=== PATIENT | female | born 1995 | race Caucasian/White ===

== ENCOUNTER 2016-02-20 16:14 | Inpatient (IN) | payer OTHER, BC ==
[~2016-02-20] VITALS: Ht 182.9 cm; Wt 76.6 kg
[2016-02-20] VITALS (9 sets, daily range): BP systolic 104–122; BP diastolic 56–97
--- NOTE | 2016-02-20 16:27 | ED Dyspnea ---
General Stated Complaint: BLOOD CLOTS Source of Information: Patient Exam Limitations: No Limitations History of Present Illness Time Seen by Provider: 16:24 Initial Comments To ER with reports of an elevated d-dimer. She was seen here on 02/17/16 after syncopal event during basket ball practice. 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 Evaluation at that time included an echocardiogram which showed Mild RV dilatation with mild RV dysfunction noted. Pulmonary hypertension is noted with RVSP of 45 mmHg. however, d-dimer was not done. Today as an outpatient Dr. Sanchez ordered d-dimer which was found to be greater than 6. She does report persistent dyspnea with exertion but no recurrent syncopal or near syncopal events. She denies any lower extremity swelling or palpitations or chest pain. She is a nonsmoker. She is on control pills. No family history that she is aware of of clotting disorder. Timing/Duration: 1 Week Severity: Moderate Modifying Factors: Worse With Activity Allergies and Home Medications Allergies Coded Allergies: No Known Drug Allergies (Unverified , 02/17/16) Home Medications (Reported) Constitutional: see HPI EENTM: see HPI Respiratory: see HPINo cough, dyspnea on exertionNo hemoptysis, short of breath Cardiovascular: No chest pain, No edema, No Hx of Intervention, No palpitations , syncope (evaluated in the emergency room on 02/17/16 for this) Genitourinary: no symptoms reported Musculoskeletal: no symptoms reported Skin: no symptoms reported Psychiatric/Neurological: No Symptoms Reported Past Dszxdkf-Rxcvnv-Juniae Hx Patient Social History Recent Foreign Travel: No Contact w/Someone Who Travel: No Recent Hopitalizations: No Seasonal Allergies Seasonal Allergies: No Surgeries HX Surgeries: Yes Surgeries: Orthopedic Physical Exam Vital Signs Vital Sign - Last 12Hours 02/20/16 16:14 Temp 96.7 Pulse 90 Resp 18 B/P 127/87 Pulse Ox 96 O2 Delivery Room Air Capillary Refill : General Appearance: No Apparent Distress WD/WN Other (she is well-appearing upon arrival. No respiratory distress. Blood pressure is 127/87. Heart rate is 94. Oxygen saturation is also 94 percent on room air. Respiratory rate is 18.) HEENT: PERRL/EOMI TMs Normal Neck: Full Range of Motion Normal Inspection Respiratory: Chest Non Tender Lungs Clear Normal Breath Sounds No Accessory Muscle Use No Respiratory Distress Cardiovascular: Regular Rate, Rhythm Normal Peripheral Pulses Gastrointestinal: No Pulsatile Mass Non Tender Soft Extremity: Normal Capillary Refill Normal Inspection No Pedal Edema Neurologic/Psychiatric: Alert Oriented x3 No Motor/Sensory Deficits Skin: Normal Color Warm/Dry Progress/Results/Core Measures Results/Orders Lab Results Laboratory Tests Test 02/20/16 16:20 Range/Units Alanine Aminotransferase (ALT/SGPT) 20 0-55 U/L Albumin 4.2 3.2-4.5 G/DL Alkaline Phosphatase 75 40-136 U/L Anion Gap 10 5-14 MMOL/L Aspartate Amino Transf (AST/SGOT) 17 5-34 U/L BUN/Creatinine Ratio 16 Basophils # (Auto) 0.0 0.0-0.1 10^3/uL Basophils (%) (Auto) 0 0-10 % Blood Urea Nitrogen 14 7-18 MG/DL Calcium Level 9.3 8.5-10.1 MG/DL Carbon Dioxide Level 24 21-32 MMOL/L Chloride Level 104 98-107 MMOL/L Creatinine 0.88 0.60-1.30 MG/DL Eosinophils # (Auto) 0.3 0.0-0.3 10^3/uL Eosinophils (%) (Auto) 4 0-10 % Estimat Glomerular Filtration Rate > 60 Glucose Level 81 70-105 MG/DL Hematocrit 39 35-52 % Hemoglobin 13.4 11.5-16.0 G/DL Lymphocytes # (Auto) 1.7 1.0-4.0 X 10^3 Lymphocytes (%) (Auto) 22 12-44 % Mean Corpuscular Hemoglobin 31 25-34 PG Mean Corpuscular Hemoglobin Concent 35 32-36 G/DL Mean Corpuscular Volume 90 80-99 FL Mean Platelet Volume 10.3 7.4-10.4 FL Monocytes # (Auto) 0.5 0.0-1.0 X 10^3 Monocytes (%) (Auto) 6 0-12 % Neutrophils # (Auto) 5.2 1.8-7.8 X 10^3 Neutrophils (%) (Auto) 68 42-75 % Platelet Count 153 130-400 10^3/uL Potassium Level 3.8 3.6-5.0 MMOL/L Red Blood Count 4.31 L 4.35-5.85 10^6/uL Red Cell Distribution Width 12.9 10.0-14.5 % Sodium Level 138 135-145 MMOL/L Total Bilirubin 0.4 0.1-1.0 MG/DL Total Protein 7.3 6.4-8.2 G/DL White Blood Count 7.7 4.3-11.0 10^3/uL My Orders Orders-RIKA PARDO VIDEO JOURNALIST Ct Angio Chest W (02/20/16 16:16) Cbc With Automated Diff (02/20/16 16:16) Comprehensive Metabolic Panel (02/20/16 16:16) Urine Bedside (02/20/16 16:16) Iohexol Injection (Omnipaque 350 Mg/Ml 1 (02/20/16 16:45) Ns (Ivpb) (Sodium Chloride 0.9% Ivpb Bag (02/20/16 16:45) Ekg Tracing (02/20/16 16:43) Continuous Ekg Monitoring (02/20/16 16:43) Us Venous Lower Ext Lisette (02/20/16 17:21) Heparin Drip 89491 Unit/500ml (Heparin (02/20/16 17:24) Heparin (Bolus Per Protocol) (Heparin (B (02/20/16 17:30) Medications Given in ED Current Medications Medications Dose Ordered Sig/Kim Route Start Time Stop Time Status Last Admin Dose Admin Heparin Sodium (Porcine) HEPARIN FULL PROTOC... ONCE ONCE IV 02/20/16 17:30 02/20/16 17:31 DC 02/20/16 17:44 10,000 UNIT Heparin Sodium/ Dextrose 500 ml @ 0 mls/hr Q0M ONCE IV 02/20/16 17:24 02/20/16 17:26 DC 02/20/16 17:45 24 MLS/HR Iohexol 150 ml ONCE ONCE IV 02/20/16 16:45 02/20/16 16:46 DC 02/20/16 17:06 125 ML Sodium Chloride 100 ml 100 ml ONCE ONCE IV 02/20/16 16:45 02/20/16 16:46 DC 02/20/16 17:06 80 ML Vital Signs/I&O Vital Sign - Last 12Hours 02/20/16 16:14 Temp 96.7 Pulse 90 Resp 18 B/P 127/87 Pulse Ox 96 O2 Delivery Room Air Diagnostic Imaging Diagonstic Imaging: CT Comments NAME: KWABENA DAVIS [facility] REC#: [id number] PT STATUS: REG ER : 1995 PHYSICIAN: RIKA PARDO APRN ADMIT DATE: 02/20/16/ER Draft Date of Exam:02/20/16 CT ANGIO CHEST W PROCEDURE: CT angiography of the chest with contrast. TECHNIQUE: Multiple contiguous axial images were obtained through the chest after uneventful bolus administration of intravenous contrast. Reconstructed CTA MIP acquisitions were also performed. INDICATION: Shortness of breath. Patient passed out during basketball practice two days ago. COMPARISON: None available. FINDINGS: There is a large burden of bilateral pulmonary thromboembolic disease. On the right, emboli are present within all of the lobar arteries of the right upper and lower lobe. There is also thrombus involving a majority of the lobar and interlobar vessels in the left lung. No evidence of pulmonary hypertension or right ventricular strain. Heart is upper limits of normal in size. Thoracic aorta is normal in caliber without evidence of dissection. No pericardial effusion. No pleural effusion or pneumothorax. There are patchy opacities in the lateral basilar segment of the right lower lobe which may represent early foci of infarct or atelectasis. There is an 8 mm nodule in the left lower lobe adjacent to the diaphragm. No additional consolidation, mass or nodule. Benign hemangioma within the T4 vertebral body. No concerning osseous lesions. Visualized portions of the upper abdomen are unremarkable. IMPRESSION: 1. Large burden of bilateral pulmonary emboli. No evidence of pulmonary hypertension by CT. 2. Patchy consolidation in the posterior right lower lobe may represent developing pulmonary infarct. This could also represent atelectasis. 3. Left lower lobe 8 mm pulmonary nodule could represent an additional foci of early infarct. This could also be infectious or inflammatory in etiology. Followup CT chest in three months after appropriate medical management is advised to ensure resolution. The findings of acute pulmonary emboli were communicated by Dr. Juan J Benton to Rika Pardo in the emergency department at 5:30 p.m. on 02/20/2016. Dictated on workstation # [id number] Dict: 02/20/16 1725 Trans: 02/20/16 1738 [facility] [id number] Interpreted by: JUAN J BENTON MD Electronically signed by: NAME: KWABENA DAVIS [facility] REC#: [id number] PT STATUS: ADM IN : 1995 PHYSICIAN: RIKA PARDO APRN ADMIT DATE: 02/20/16/ICU Draft Date of Exam:02/20/16 US VENOUS LOWER EXT LISETTE Technique: Grayscale, pulsed and color Doppler imaging of the bilateral lower extremity. Indication: Bilateral pulmonary emboli. Findings: The bilateral common femoral, femoral and popliteal veins are patent without evidence of DVT. Visualized aspects of the bilateral deep femoral, peroneal and posterior tibial veins are also patent. All of the evaluated deep venous structures demonstrate normal compressibility and augmentation where applicable. Impression: No deep venous thrombosis in either lower extremity. Dictated on workstation # [id number] Dict: 02/20/161851 Trans: 02/20/161853 [facility] [id number] Interpreted by: JUAN J BENTON MD Electronically signed by: Departure Communication Time/Spoke to Admitting Phy: 17:43 Communication Discussed the case with Dr. Pérez. We will admit the patient to ICU with a consult to Dr. Grier and Dr. Layne Time/Spoke to Consulting Physi: 17:43 Communication/Consulting Discussed with Dr. Layne who agrees with full heparin protocol. Family Conversation Dr Grier was notified via Olivia HORAN of consult as he was in a procedure at this time Impression Impression: Primary Impression: Bilateral pulmonary embolism Disposition: ADMITTED INPATIENT Condition: Stable Decision to Admit Reason: Admit from ER (General) Decision to Admit/Date: Feb 20, 2016 Time/Decision to Admit Time: 17:28 Departure-Patient Inst. Referrals: [facility] (PCP/Family) Primary Care Physician Copy Copies To 1: JULIANA SANCHEZ MD, PETER J APRN Feb 20, 2016 16:27
[2016-02-20 16:29] LABS: BASOPHILS % (AUTO) 0 % (0-10); EOSINOPHILS # (AUTO) 0.3 10^3/uL (0.0-0.3); EOSINOPHILS % (AUTO) 4 % (0-10); LYMPHOCYTES # (AUTO) 1.7 X 10^3 (1.0-4.0); LYMPHOCYTES % (AUTO) 22 % (12-44); MEAN CORPUSCULAR HEMOGLOBIN 31 PG (25-34); MEAN CORPUSCULAR HGB CONC 35 G/DL (32-36); MEAN CORPUSCULAR VOLUME 90 FL (80-99); MEAN PLATELET VOLUME 10.3 FL (7.4-10.4); MONOCYTES # (AUTO) 0.5 X 10^3 (0.0-1.0); MONOCYTES % (AUTO) 6 % (0-12); NEUTROPHILS # (AUTO) 5.2 X 10^3 (1.8-7.8); NEUTROPHILS % (AUTO) 68 % (42-75); PLATELET COUNT 153 10^3/uL (130-400); RED BLOOD COUNT 4.31 10^6/uL (4.35-5.85); RED CELL DISTRIBUTION WIDTH 12.9 % (10.0-14.5); WHITE BLOOD COUNT 7.7 10^3/uL (4.3-11.0)
[2016-02-20] MEDS ORDERED: BCP (16:33)
[2016-02-20] MEDS ORDERED: NS 100 ML (IVPB) BAG IV ONE (16:45)
[2016-02-20] MEDS ORDERED: IOHEXOL 350 MG/ML 150 ML (OMNIPAQUE 350) VIAL IV ONE (16:45)
[2016-02-20 16:47] LABS: ALANINE AMINOTRANSFERASE 20 U/L (0-55); ALBUMIN 4.2 G/DL (3.2-4.5); ANION GAP 10 MMOL/L (5-14); ASPARTATE AMINO TRANSFERASE 17 U/L (5-34); BILIRUBIN,TOTAL 0.4 MG/DL (0.1-1.0); BLOOD UREA NITROGEN 14 MG/DL (7-18); BUN/CREATININE RATIO 16; CALCIUM 9.3 MG/DL (8.5-10.1); CARBON DIOXIDE 24 MMOL/L (21-32); CHLORIDE 104 MMOL/L (98-107); CREATININE SERUM 0.88 MG/DL (0.60-1.30); GFR ESTIMATED > 60; GLUCOSE 81 MG/DL (70-105); POTASSIUM 3.8 MMOL/L (3.6-5.0); SODIUM 138 MMOL/L (135-145); TOTAL PROTEIN 7.3 G/DL (6.4-8.2)
[2016-02-20] MEDS ORDERED: HEParin DRIP 25000 UNIT/500ML 500 ML IV ONE (17:24)
[2016-02-20] MEDS ORDERED: HEParin 1000 UNIT/ML (10ML VIAL) FOR BOLUS IV ONE (17:30)
--- NOTE | 2016-02-20 17:38 | Diagnostic Imaging Report ---
PROCEDURE: CT angiography of the chest with contrast. TECHNIQUE: Multiple contiguous axial images were obtained through the chest after uneventful bolus administration of intravenous contrast. Reconstructed CTA MIP acquisitions were also performed. INDICATION: Shortness of breath. Patient passed out during basketball practice two days ago. COMPARISON: None available. FINDINGS: There is a large burden of bilateral pulmonary thromboembolic disease. On the right, emboli are present within all of the lobar arteries of the right upper and lower lobe. There is also thrombus involving a majority of the lobar and interlobar vessels in the left lung. No evidence of pulmonary hypertension or right ventricular strain. Heart is upper limits of normal in size. Thoracic aorta is normal in caliber without evidence of dissection. No pericardial effusion. No pleural effusion or pneumothorax. There are patchy opacities in the lateral basilar segment of the right lower lobe which may represent early foci of infarct or atelectasis. There is an 8 mm nodule in the left lower lobe adjacent to the diaphragm. No additional consolidation, mass or nodule. Benign hemangioma within the T4 vertebral body. No concerning osseous lesions. Visualized portions of the upper abdomen are unremarkable. IMPRESSION: 1. Large burden of bilateral pulmonary emboli. No evidence of pulmonary hypertension by CT. 2. Patchy consolidation in the posterior right lower lobe may represent developing pulmonary infarct. This could also represent atelectasis. 3. Left lower lobe 8 mm pulmonary nodule could represent an additional foci of early infarct. This could also be infectious or inflammatory in etiology. Followup CT chest in three months after appropriate medical management is advised to ensure resolution. The findings of acute pulmonary emboli were communicated by Dr. Juan J Benton to Rafa Pardo in the emergency department at 5:30 p.m. on 02/20/2016. Dictated by: Dictated on workstation # [id number]
--- NOTE | 2016-02-20 18:55 | Diagnostic Imaging Report ---
Technique: Grayscale, pulsed and color Doppler imaging of the bilateral lower extremity. Indication: Bilateral pulmonary emboli. Findings: The bilateral common femoral, femoral and popliteal veins are patent without evidence of DVT. Visualized aspects of the bilateral deep femoral, peroneal and posterior tibial veins are also patent. All of the evaluated deep venous structures demonstrate normal compressibility and augmentation where applicable. Impression: No deep venous thrombosis in either lower extremity. Dictated by: Dictated on workstation # [id number]
[2016-02-20 19:46] LABS: INR 0.9 (0.8-1.4); PROTHROMBIN TIME PATIENT 12.2 SEC (12.2-14.7)
[2016-02-20] MEDS ORDERED: FLU TRIvalent (5 YOA+) 2016-17 (AFLURIA) 0.5 ML IM ONE (20:30)
[2016-02-20] MEDS ORDERED: HEParin 1000 UNIT/ML BOLUS (FULL THERAPY) IV PRN (20:30)
[2016-02-21] VITALS: BP 92/66
[2016-02-21] MEDS ORDERED: NS IV 1000 ML 1,000 ML ONE (01:42)
[2016-02-21] MEDS ORDERED: NS IV 1000 ML 1,000 ML IV SCH (03:30)
[2016-02-21 04:00] VITALS: BP 108/70
--- NOTE | 2016-02-21 08:15 | Pulmonary Consultation ---
History of Present Illness History of Present Illness Date of Consultation 02/21/16 08:11 Date of Admission History of Present Illness 20yo presented to ED secondary to worsening SOB and syncope. CT scan showed large saddle pulmonary emboli. She was admitted to ICU and placed on heparin gtt. She has been on control pills x 4mo. she was also on a recent trip to [place]. 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. I am consulted for pulmonary management. Allergies and Home Medications Allergies Coded Allergies: No Known Drug Allergies (Unverified , 02/17/16) Home Medications Rivaroxaban 15 Mg Tablet 21Days 15 MG PO BID@, Prescribed by: BERNADETTE PERDOMO on 02/23/16 1038 Rivaroxaban 20 Mg Tablet #30 20 MG PO DAILY Prescribed by: BERNADETTE PERDOMO on 02/23/16 1038 Past Cbpymvq-Qdxvbk-Idudme Hx Patient Social History Alcohol Use: Occasionally Uses Recreational Drug Use: No Smoking Status: Never a Smoker Recent Foreign Travel: No Contact w/Someone Who Travel: No Recent Infectious Disease Expo: No Recent Hopitalizations: No Physical Abuse Screen: No Sexual Abuse: No Seasonal Allergies Seasonal Allergies: No Surgeries HX Surgeries: Yes (ACL RECONSTRUCTION) Surgeries: Orthopedic Respiratory Hx Respiratory Disorders: No Cardiovascular Hx Cardiac Disorders: No Neurological Hx Neurological Disorders: No Reproductive System Hx Reproductive Disorders: No Genitourinary Hx Genitourinary Disorders: No Gastrointestinal Hx Gastrointestinal Disorders: No Musculoskeletal Hx Musculoskeletal Disorders: No Endocrine Hx Endocrine Disorders: No HEENT HX ENT Disorders: No Cancer Hx Cancer: No Psychosocial Hx Psychiatric Problems: No Integumentary HX Skin/Integumentary Disorder: No Blood Transfusions Hx Blood Disorders: No Adverse Reaction to a Blood Tr: No Family Medical History Family Medial History: Patient reports no known family medical history. Review of Systems Constitutional: : Malaise: WeaknessNo: Chills, Fever, Other, Sweats ENT: : Nose congestion Respiratory: : Cough: SOB with excertion: Shortness of breath Cardiovascular: : Lt Headedness: PalpitationsNo: Chest Pain, Edema, Orthopnea, Other Gastrointestinal: No: Abdominal Pain, Constipation, Diarrhea, Hematochezia, Melena, Nausea, Other, Vomiting Genitourinary: No Dysuria, No Frequency, No Incontinence, No Hematuria, No Retention, No Other Musculoskeletal: No: arm pain, back pain, foot pain, hand pain, leg pain, neck pain, other, shoulder pain Skin: No: Bruising, Jaundice, Lesions, Other, Rash Neurological: : Weakness Exam Exam Vital Signs Date Time Temp Pulse Resp B/P Pulse Ox O2 Delivery O2 Flow Rate FiO2 02/21/16 06:30 100 Nasal Cannula 2.00 02/21/16 04:00 97.8 64 16 108/70 100 Nasal Cannula 2.00 02/21/16 04:00 100 Nasal Cannula 2.00 02/21/16 01:58 99 Nasal Cannula 2.00 02/21/16 01:09 100 Nasal Cannula 2.00 02/21/16 01:00 61 02/21/16 00:00 99 Nasal Cannula 2.00 02/21/16 00:00 56 18 92/66 100 Room Air 02/21/16 00:00 97.6 02/20/16 23:37 Nasal Cannula 2.00 02/20/16 23:00 46 14 107/64 100 Room Air 02/20/16 22:00 66 20 104/75 97 Room Air 02/20/16 21:30 68 19 105/62 99 Room Air 02/20/16 21:00 74 10 121/97 100 Room Air 02/20/16 20:30 71 16 112/92 98 Room Air 02/20/16 20:20 58 02/20/16 20:00 61 10 110/65 99 Room Air 02/20/16 19:45 58 13 122/86 100 Room Air 02/20/16 19:30 67 17 115/56 97 Room Air 02/20/16 19:25 58 13 114/83 100 Room Air 02/20/16 19:25 98.1 02/20/16 19:20 99 Nasal Cannula 2.00 02/20/16 18:13 71 18 100 Room Air 02/20/16 16:14 96.7 90 18 127/87 96 Room Air I & O 02/21/16 07:00 Intake Total 800 ml Output Total 400 ml Balance 400 ml General Appearance: No Apparent Distress WD/WN Other (she is well-appearing upon arrival. No respiratory distress. Blood pressure is 127/87. Heart rate is 94. Oxygen saturation is also 94 percent on room air. Respiratory rate is 18.) HEENT: PERRL/EOMI TMs Normal Neck: Full Range of Motion Normal Inspection Respiratory: Chest Non Tender Lungs Clear Normal Breath Sounds No Accessory Muscle Use No Respiratory Distress Cardiovascular: Regular Rate, Rhythm Normal Peripheral Pulses Capillary Refill: Less Than 3 Seconds Extremity: Normal Capillary Refill Normal Inspection No Pedal Edema Neurologic/Psychiatric: Alert Oriented x3 No Motor/Sensory Deficits Skin: Normal Color Warm/Dry Results Lab Laboratory Tests 02/20/16 16:20 Assessment/Plan Assessment/Plan -Acute PE secondary to control -Hep gtt PE protocol -- Will convert to Xarelto prior to discharge. Will continue to monitor until Tuesday -D/C control Clinical Quality Measures DVT/VTE Risk/Contraindication: Risk Factor Score Per Nursin RFS Level Per Nursing on Admit: 4+=Very High BA WEISS DO Feb 21, 2016 08:15
[2016-02-21 08:45] VITALS: BP 105/67
[2016-02-21 11:35] VITALS: BP 107/68
--- NOTE | 2016-02-21 11:53 | History & Physical-Hospitalist ---
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 She was found to have elevated d-dimer of [address] angiogram that was obtained showing large clot burden of saddle pulmonary emboli. She was placed on heparin per protocol and Dr. Grier and Dr. Layne have been consulted due to abnormal echocardiogram showing left ventricular strain and pulmonary hypertension respectively. She reports that she was just started on control pills 4 months ago to regulate her periods of which she has been taking continuously without one week for menstrual bleed since that time. [place] also [place] when she was participating in a basketball game. She reports that she experienced an episode of fainting on 02/17/16 at basketball practice and presented to the emergency room was found to have echocardiogram completed and had become more short of breath as time went on. Currently her family is at the bedside and she is very withdrawn due to the fact that she was unable to dissipate in the basketball game today and with the most important games of the season but she will watch the game by television. I did order a factor V Leiden clotting disorder lab test in case the acute clot would not skew the results but I updated the family on that fact that could be a possibility but factor V Leiden being the most common cause of hyper correctable state of addition to the hormone that she was on they agreed that was an opportunity while she was hospitalized to obtain. 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) Alcohol Use: Occasionally Uses Recreational Drug Use: No Smoking Status: Never a Smoker Physical Abuse Screen: No Sexual Abuse: No Recent Foreign Travel: No Contact w/other who traveled: No Recent Hopitalizations: No Recent Infectious Disease Expo: No Seasonal Allergies Seasonal Allergies: No Surgeries HX Surgeries: Yes (ACL RECONSTRUCTION) Surgeries: Orthopedic Respiratory Hx Respiratory Disorders: No Cardiovascular Hx Cardiovascular Disorders: No Neurological Hx Neurological Disorders: No Reproductive System Hx Reproductive Disorders: No Genitourinary Hx Genitourinary Disorders: No Gastrointestinal Hx Gastrointestinal Disorders: No Musculoskeletal Hx Musculoskeletal Disorders: No Endocrine Hx Endocrine Disorders: No HEENT HX ENT Disorders: No Cancer Hx Cancer: No Psychosocial Hx Psychiatric Problems: No Integumentary HX Skin/Integumentary Disorder: No Blood Transfusions Hx Blood Disorders: No Adverse Reaction to a Blood Tr: No Family Medical History Family Hx: Patient reports no known family medical history. Review of Systems Constitutional: dizziness weakness EENTM: no symptoms reported Respiratory: dyspnea on exertion orthopnea short of breath Cardiovascular: chest pain Gastrointestinal: no symptoms reported Genitourinary: no symptoms reported Control/STD Prophylaxis: BC Pills Musculoskeletal: no symptoms reported Skin: no symptoms reported Psychiatric/Neurological: No Symptoms Reported All Other Systems Reviewed Negative Unless Noted: Yes Physical Exam Physical Exam Vital Signs Vital Sign - Last 12Hours 02/20/16 02/20/16 16:14 19:20 Temp 96.7 Pulse 90 Resp 18 B/P 127/87 Pulse Ox 96 O2 Delivery Room Air O2 Flow Rate 2.00 Capillary Refill : Less Than 3 Seconds General Appearance: No Apparent Distress WD/WN Eyes: Bilateral Eye Normal Inspection, Bilateral Eye PERRL HEENT: PERRL/EOMI Normal ENT Inspection Pharynx Normal Neck: Full Range of Motion Normal Inspection Non Tender Supple Carotid Bruit Respiratory: Chest Non Tender Lungs Clear No Accessory Muscle Use No Respiratory Distress Decreased Breath Sounds (in the bases only subtle finding) Cardiovascular: Regular Rate, Rhythm No Edema No Gallop No JVD No Murmur Normal Peripheral Pulses Gastrointestinal: Normal Bowel Sounds No Organomegaly No Pulsatile Mass Non Tender Soft Back: Normal Inspection No CVA Tenderness No Vertebral Tenderness Extremity: Normal Capillary Refill Normal Inspection Normal Range of Motion Non Tender No Calf Tenderness No Pedal Edema Neurologic/Psychiatric: Alert Oriented x3 No Motor/Sensory Deficits Normal Mood/Affect Skin: Normal Color Warm/Dry Lymphatic: No Adenopathy Results Results/Procedures Lab Laboratory Tests 02/20/16 16:20 Assessment/Plan Admission Diagnosis Acute bilateral pulmonary emboli saddle-type with large clot burden with necessity of heparin infusion until transitioning to Xarelto tomorrow Pulmonary hypertension on echocardiogram of 45 with LV strain consulting cardiology History of control pill use started 4 months ago and never been on control pills before and had been taking them continuously without menstrual bleed to regulate her cycles Maternal aunt with blood clots due to ovarian cancer and undergoing chemotherapy at that time Syncopal episode prompting echocardiogram on 02/17/16 Assessment and Plan I appreciate Dr. Grier and Dr. Layne's consultation assistance Heparin protocol Xarelto tomorrow Monitor labs Factor V Leiden drawn Clinical Quality Measures DVT/VTE Risk/Contraindication: Risk Factor Score Per Nursin RFS Level Per Nursing on Admit: 4+=Very High YESSENIA PÉREZ DO Feb 21, 2016 11:53
[2016-02-21] MEDS: HEParin DRIP 25000 UNIT/500ML (FULL THERAPY) IV SCH (12:41)
--- NOTE | 2016-02-21 15:59 | Consultation-Cardiology ---
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 She was seen in the ER, however , there was no cardiology consultation. An echocardiogram was done during the ER visit which I reviewed. The echocardiogram showed mild pulmonary hypertension and mild RV dysfunction. based on the echocardiogram I recommended no further exertion and early follow-up with pulmonary and cardiology. The patient returned to the [employer] clinic with complaints of shortness of breath. Dr. Sanchez performed a d-dimer which was significantly positive and the patient was sent to the ER. Chest CT angiography showed bilateral pulmonary embolism. She denies significant shortness of breath. She also denies family history of clotting abnormalities. Review of Systems-Cardiology Review of Systems Constitutional: No As described under HPI, No no symptoms reported, No chills, No fever, No lightheadedness, No malaise, No tiredness, No weight loss, No weight gain, No other Eyes: No As described under HPI, No no symptoms reported, No blindness, No blurred vision, No contact lenses, No drainage, No decreased acuity, No foreign body sensation, No glasses, No inflammation, No pain, No photophobia, No previous injury, No shadows, No tunnel vision, No other, No vision change Ears/Nose/Throat: No As described under HPI, No no symptoms reported, No chronic hearing loss, No epistaxis, No ear discharge, No ear pain, No loose teeth, No mouth pain, No mouth swelling, No nasal drainage, No nose pain, No recent hearing loss, No throat pain, No throat swelling, No ulcerations, No other Respiratory: shortness of breath Cardiovascular: other (near syncope) Gastrointestinal: No no symptoms reported, No As described under HPI, No abdomen distended, No abdominal pain, No blood streaked bowels, No constipation , No diarrhea, No difficulty swallowing, No nausea, No poor appetite, No poor fluid intake, No rectal bleeding, No vomiting, No other, No nausea/vomiting/ diarrhea, No stool coloration changes Genitourinary: No no symptoms reported, No As described under HPI, No burning, No dysuria, No discharge, No frequency, No flank pain, No hematuria, No incontinence, No pain, No urgency, No other, No urine frequency changes, No urine coloration changes Musculoskeletal: No no symptoms reported, No As describe under HPI, No back pain, No gout, No joint pain, No joint swelling, No muscle pain, No muscle stiffness, No neck pain, No other Skin: No no symptoms reported, No As described under HPI, No change in color, No change in hair/nails, No dryness, No lesions, No lumps, No rash, No other, No skin related problems, No ulcerations, No rash on exposed areas, No ulcerations on exposed areas Psychiatric/Neurological: No As described under HPI, No anxiety, No depression , No emotional problems, No focal weakness, No headache, No no symptoms reported , No numbness, No other, No pre-existing deficit, No seizure, No syncope, No tingling, No tremors, No weakness All Other Systems Reviewed Negative Unless Noted: Yes GTD-Nrpqdu-Vbites Hx Patient Social History Marrital Status: single 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 Family Medical History Family History: Patient reports no known family medical history. Allergies and Home Medications Allergies Coded Allergies: No Known Drug Allergies (Unverified , 02/17/16) Home Medications (Reported) Physical Exam-Cardiology Physical Exam Vital Signs/I&O Vital Sign - Last 12Hours 02/21/16 02/21/16 02/21/16 02/21/16 04:00 04:00 06:30 06:59 Temp 97.8 Pulse 64 38 Resp 16 B/P 108/70 Pulse Ox 100 100 100 O2 Delivery Nasal Cannula Nasal Cannula Nasal Cannula O2 Flow Rate 2.00 2.00 2.00 02/21/16 02/21/16 02/21/16 02/21/16 08:45 08:45 09:45 11:35 Temp 98.2 98.9 Pulse 68 69 Resp 14 16 B/P 105/67 107/68 Pulse Ox 97 95 97 97 O2 Delivery Room Air Room Air Room Air Room Air 02/21/16 02/21/16 02/21/16 12:00 12:51 14:56 Pulse 74 Pulse Ox 97 99 O2 Delivery Room Air Room Air Intake and Output 02/21/16 00:00 Intake Total 200 ml Balance 200 ml Capillary Refill : Less Than 3 Seconds Constitutional: No appears stated age, No AAO x 3, No apparent distress, No PERRL, No well-developed, No well-nourished, No other HEENT: No PERRL, No normal ENT inspection, No TMs normal, No pharynx normal, No scleral icterus (R), No scleral icterus (L), No pale conjunctivae (R), No pale conjunctivae (L), No photophobia, No TM abnormal (R), No TM abnormal (L), No pharyngeal erythema, No tonsillar exudate, No other, No discharge, No EOMI, No hearing is well preserved, No hard of hearing, No oral hygience is good, No ulceration, No xanthelasmas are seen Neck: No non-tender, No full range of motion, No supple, No normal inspection, No carotid bruit, No limited range of motion, No lymphadenopathy (R), No lymphadenopathy (L), No tender lateral, No tender midline, No thyromegaly, No other, No carotid pulses are 2 + bilaterally, No with good upstrokes Respiratory: No accessory muscle use, No respiratory distress, No chest tender , No chest expansion is symmetric, No chest is bilaterally symmetric, No lungs clear to percussion, No lungs clear to auscultation, No crackles, No rhonchi, No rales, No stridor, No wheezing, No pleural rub, No other Cardiovascular: No regular rate-rhythm, No irregularly irregular, No extra beats, No parasternal heave is noted, No JVD, No edema, No bradycardia, No tachycardia, No point of maximal impulse, No cardiac thrills are palpable, No S1 and S2, No gallop/S3, No gallop/S4, No diastolic murmur, No systolic murmur, No friction rub, No click, No other Gastrointestinal: No tender, No soft, No round, No distended, No pulsatile mass , No organomegaly, No guarding, No rebound, No tenderness, No hernia, No mass, No audible bowel sounds, No abnormal bowel sounds, No abdominal bruits, No spleenomegaly, No other Rectal: deferred Extremities: No normal range of motion, No non-tender, No normal inspection, No pedal edema, No calf tenderness, No normal capillary refill, No pelvis stable , No calf tenderness, No inflammation, No pedal edema, No slow capillary refill , No swelling, No other, No abrasion, No clubbing, No cyanosis, No ecchymosis, No laceration, No no lower extremity edema bilateral, No significant edema, No tenderness, No wound Neurologic/Psychiatric: No photographic specialist II-XII nml as tested, No no motor/sensory deficits, No alert, No normal mood/affect, No oriented x 3, No abnormal cerebellar tests, No abnormal photographic specialist II-XII, No abnormal gait, No aphasia, No EOM palsy, No facial droop, No motor weakness, No sensory deficit, No depressed affect, No disoriented x 3, No other, No grossly intact, No power is 5/5 both on sides Skin: No normal color, No warm/dry, No cyanosis, No cool, No diaphoresis, No damp, No ecchymosis, No jaundice, No mottled, No pallor, No rash, No tattoos/ piercings, No ulcerations, No rash on exposed areas, No ulcerations on exposed areas, No other Data Review Labs Laboratory Tests 02/20/16 16:20: Activated Partial Thromboplast Time 26, Alanine Aminotransferase (ALT/SGPT) 20, Albumin 4.2, Alkaline Phosphatase 75, Anion Gap 10, Aspartate Amino Transf (AST/ SGOT) 17, BUN/Creatinine Ratio 16, Basophils # (Auto) 0.0, Basophils (%) (Auto) 0, Blood Urea Nitrogen 14, Calcium Level 9.3, Carbon Dioxide Level 24, Chloride Level 104, Creatinine 0.88, Eosinophils # (Auto) 0.3, Eosinophils (%) (Auto) 4, Estimat Glomerular Filtration Rate > 60, Glucose Level 81, Hematocrit 39, Hemoglobin 13.4, INR Comment 0.9, Lymphocytes # (Auto) 1.7, Lymphocytes (%) ( Auto) 22, Mean Corpuscular Hemoglobin 31, Mean Corpuscular Hemoglobin Concent 35 , Mean Corpuscular Volume 90, Mean Platelet Volume 10.3, Monocytes # (Auto) 0.5 , Monocytes (%) (Auto) 6, Neutrophils # (Auto) 5.2, Neutrophils (%) (Auto) 68, Platelet Count 153, Potassium Level 3.8, Prothrombin Time 12.2, Red Blood Count 4.31L, Red Cell Distribution Width 12.9, Sodium Level 138, Total Bilirubin 0.4, Total Protein 7.3, White Blood Count 7.7 02/20/16 21:49: Activated Partial Thromboplast Time 51H 02/21/16 04:56: Activated Partial Thromboplast Time 55H 02/21/16 11:44: Activated Partial Thromboplast Time 59H 02/21/16 15:35: Urine Test NEGATIVE ECG Impression ECG Initial ECG Rhythm: Normal Sinus A/P-Cardiology Assessment/Admission Diagnosis acute pulmonary embolism, RV dysfunction, Pulmonary hypertension Plan IV heparin per protocol. Gradual transition to Eliquis or Xarelto. Possible hematological workup as an outpatient. RV dysfunction and pulmonary hypertension secondary to PE. Defer further management to the primary team and Dr. Layne. Thank you for your consultation. Please call me if you have any questions. Karishma Grier MD, FACP, FACC, FSCAI, FHRS, CCDS Interventional Cardiology Cardiac Electrophysiology Vascular Medicine and Endovascular Interventions Clinical Quality Measures DVT/VTE Risk/Contraindication: Risk Factor Score Per Nursin RFS Level Per Nursing on Admit: 4+=Very High Martha GRIER MD Feb 21, 2016 3:59 pm
[2016-02-21 16:00] VITALS: BP 115/71
[2016-02-21 20:00] VITALS: BP 113/79
[2016-02-21] MEDS ORDERED: ACETAMINOPHEN 500 MG TAB (TYLENOL) PO PRN (22:00)
[2016-02-22] VITALS (9 sets, daily range): BP systolic 100–125; BP diastolic 52–82
[2016-02-22] MEDS: HEParin DRIP 25000 UNIT/500ML (FULL THERAPY) IV SCH (01:53)
--- NOTE | 2016-02-22 08:29 | Pulmonary Progress Note ---
Subjective Subjective/Events-last exam No complications noted. Pt feels improved. Exam Exam Vital Signs Date Time Temp Pulse Resp B/P Pulse Ox O2 Delivery O2 Flow Rate FiO2 02/22/16 06:10 95 Room Air 02/22/16 04:15 98.3 47 16 113/82 96 Room Air 02/22/16 04:00 48 113/82 Room Air 02/22/16 03:55 97 Room Air 02/22/16 01:58 97 Room Air 02/22/16 01:00 46 02/22/16 00:00 97.9 44 14 109/66 96 Room Air 02/22/16 00:00 96 Room Air 02/21/16 22:09 95 Room Air 02/21/16 20:31 95 Room Air 02/21/16 20:00 99.6 68 18 113/79 96 Room Air 02/21/16 20:00 96 Room Air 02/21/16 19:00 63 02/21/16 16:00 97 Room Air 02/21/16 16:00 97.9 66 16 115/71 97 Room Air 02/21/16 14:56 99 Room Air 02/21/16 12:51 74 02/21/16 12:00 97 Room Air 02/21/16 11:35 98.9 69 16 107/68 97 Room Air 02/21/16 09:45 97 Room Air 02/21/16 08:45 95 Room Air 02/21/16 08:45 98.2 68 14 105/67 97 Room Air I & O 02/22/16 07:00 Intake Total 2750 ml Output Total 1950 ml Balance 800 ml General Appearance: No Apparent Distress WD/WN HEENT: PERRL/EOMI Normal ENT Inspection Pharynx Normal Neck: Full Range of Motion Normal Inspection Non Tender Supple Carotid Bruit Respiratory: Chest Non Tender Lungs Clear No Accessory Muscle Use No Respiratory Distress Decreased Breath Sounds (in the bases only subtle finding) Cardiovascular: Regular Rate, Rhythm No Edema No Gallop No JVD No Murmur Normal Peripheral Pulses Capillary Refill: Less Than 3 Seconds Extremity: Normal Capillary Refill Normal Inspection Normal Range of Motion Non Tender No Calf Tenderness No Pedal Edema Neurologic/Psychiatric: Alert Oriented x3 No Motor/Sensory Deficits Normal Mood/Affect Skin: Normal Color Warm/Dry Lymphatic: No Adenopathy Results Lab Laboratory Tests 02/20/16 16:20 Assessment/Plan Assessment/Plan -Acute PE secondary to control - convert to Xarelto today . -D/C control Transfer to 4th floor with tele. Plan on discharge tomorrow. Clinical Quality Measures DVT/VTE Risk/Contraindication: Risk Factor Score Per Nursin RFS Level Per Nursing on Admit: 4+=Very High BA WEISS DO Feb 22, 2016 08:29
[2016-02-22] MEDS: RIVAROXABAN 15 MG TABLET (XARELTO) PO SCH ×2 (09:40→16:39)
--- NOTE | 2016-02-22 13:16 | Progress Note-Hospitalist ---
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 She was found to have elevated d-dimer of [address] angiogram that was obtained showing large clot burden of saddle pulmonary emboli. She was placed on heparin per protocol and Dr. Grier and Dr. Layne have been consulted due to abnormal echocardiogram showing left ventricular strain and pulmonary hypertension respectively. She reports that she was just started on control pills 4 months ago to regulate her periods of which she has been taking continuously without one week for menstrual bleed since that time. She also returned back from [place] [employer] ride over break when she was participating in a basketball game. She reports that she experienced an episode of fainting on 02/17/16 at basketball practice and presented to the emergency room was found to have echocardiogram completed and had become more short of breath as time went on. Currently her family is at the bedside and she is very withdrawn due to the fact that she was unable to dissipate in the basketball game today and with the most important games of the season but she will watch the game by television. I did order a factor V Leiden clotting disorder lab test in case the acute clot would not skew the results but I updated the family on that fact that could be a possibility but factor V Leiden being the most common cause of hyper correctable state of addition to the hormone that she was on they agreed that was an opportunity while she was hospitalized to obtain. Progress Notes/Assess & Plan Date Seen 02/22/16 Admission Dx/Process Acute bilateral pulmonary emboli saddle-type with large clot burden with necessity of heparin infusion until transitioning to Xarelto tomorrow Pulmonary hypertension on echocardiogram of 45 with LV strain consulting cardiology History of control pill use started 4 months ago and never been on control pills before and had been taking them continuously without menstrual bleed to regulate her cycles Maternal aunt with blood clots due to ovarian cancer and undergoing chemotherapy at that time Syncopal episode prompting echocardiogram on 02/17/16 Diagonsis/Assessment & Plan Patient doing very well still on heparin drip was started on Xarelto and transitioned successfully Walking around doing well no hypoxia noted on ambulation Family the bedside and denies any other issues or complaints Xarelto will be medication prescribed at discharge Vital stable, pleasant, oriented 3 Regular rate and rhythm, clear to auscultation bilaterally much improved from rales subtle finding yesterday in the bases No edema Assessment: Acute bilateral pulmonary emboli saddle-type with large clot burden with necessity of heparin infusion s/p transitioning to Xarelto today Pulmonary hypertension on echocardiogram of 45 with LV strain consulting cardiology History of control pill use started 4 months ago and never been on control pills before and had been taking them continuously without menstrual bleed to regulate her cycles Maternal aunt with blood clots due to ovarian cancer and undergoing chemotherapy at that time Syncopal episode prompting echocardiogram on 02/17/16 Plan: I appreciate Dr. Grier and Dr. Layne's consultation assistance Xarelto today Monitor labs Factor V Leiden drawn but results pending DC Tuesday BERNADETTE PERDOMO DO Feb 22, 2016 13:16
[2016-02-22] MEDS ORDERED: RIVAROXABAN 15 MG TABLET (XARELTO) PO SCH (17:00)
[2016-02-23 04:00] VITALS: BP 100/58
[2016-02-23 07:21] LABS: BASOPHILS % (AUTO) 0 % (0-10); EOSINOPHILS # (AUTO) 0.3 10^3/uL (0.0-0.3); EOSINOPHILS % (AUTO) 6 % (0-10); LYMPHOCYTES # (AUTO) 1.5 X 10^3 (1.0-4.0); LYMPHOCYTES % (AUTO) 26 % (12-44); MEAN CORPUSCULAR HEMOGLOBIN 31 PG (25-34); MEAN CORPUSCULAR HGB CONC 35 G/DL (32-36); MEAN CORPUSCULAR VOLUME 89 FL (80-99); MONOCYTES # (AUTO) 0.4 X 10^3 (0.0-1.0); MONOCYTES % (AUTO) 6 % (0-12); NEUTROPHILS # (AUTO) 3.5 X 10^3 (1.8-7.8); NEUTROPHILS % (AUTO) 61 % (42-75); PLATELET COUNT 169 10^3/uL (130-400); RED BLOOD COUNT 4.37 10^6/uL (4.35-5.85); RED CELL DISTRIBUTION WIDTH 12.8 % (10.0-14.5); WHITE BLOOD COUNT 5.8 10^3/uL (4.3-11.0)
[2016-02-23] MEDS: RIVAROXABAN 15 MG TABLET (XARELTO) PO SCH (07:33)
[2016-02-23 07:40] LABS: ALANINE AMINOTRANSFERASE 37 U/L (0-55); ALBUMIN 4.1 G/DL (3.2-4.5); ANION GAP 11 MMOL/L (5-14); ASPARTATE AMINO TRANSFERASE 30 U/L (5-34); BILIRUBIN,TOTAL 0.4 MG/DL (0.1-1.0); BLOOD UREA NITROGEN 14 MG/DL (7-18); BUN/CREATININE RATIO 15; CALCIUM 9.9 MG/DL (8.5-10.1); CARBON DIOXIDE 23 MMOL/L (21-32); CHLORIDE 103 MMOL/L (98-107); CREATININE SERUM 0.91 MG/DL (0.60-1.30); GFR ESTIMATED > 60; GLUCOSE 92 MG/DL (70-105); POTASSIUM 4.3 MMOL/L (3.6-5.0); SODIUM 137 MMOL/L (135-145); TOTAL PROTEIN 7.3 G/DL (6.4-8.2)
[2016-02-23 08:00] VITALS: BP 112/59
--- NOTE | 2016-02-23 09:25 | Pulmonary Progress Note ---
Subjective Subjective/Events-last exam No complications noted Exam Exam Vital Signs Date Time Temp Pulse Resp B/P Pulse Ox O2 Delivery O2 Flow Rate FiO2 02/23/16 04:00 96.9 52 18 100/58 99 Room Air 02/23/16 01:00 45 02/22/16 23:32 98.6 47 18 106/60 99 Room Air 02/22/16 20:50 98.4 58 20 100/55 99 Room Air 02/22/16 20:15 98 Room Air 02/22/16 19:00 68 02/22/16 16:00 98.6 63 18 104/56 97 Room Air 02/22/16 12:00 97.7 63 20 105/52 96 Room Air 02/22/16 10:10 97.5 86 20 125/76 98 Room Air 02/22/16 10:05 98 Room Air I & O 02/23/16 07:00 Intake Total 1400 ml Output Total 1300 ml Balance 100 ml General Appearance: No Apparent Distress WD/WN HEENT: PERRL/EOMI Normal ENT Inspection Pharynx Normal Neck: Full Range of Motion Normal Inspection Non Tender Supple Carotid Bruit Respiratory: Chest Non Tender Lungs Clear No Accessory Muscle Use No Respiratory Distress Decreased Breath Sounds (in the bases only subtle finding) Cardiovascular: Regular Rate, Rhythm No Edema No Gallop No JVD No Murmur Normal Peripheral Pulses Capillary Refill: Less Than 3 Seconds Extremity: Normal Capillary Refill Normal Inspection Normal Range of Motion Non Tender No Calf Tenderness No Pedal Edema Neurologic/Psychiatric: Alert Oriented x3 No Motor/Sensory Deficits Normal Mood/Affect Skin: Normal Color Warm/Dry Lymphatic: No Adenopathy Results Lab Laboratory Tests 02/23/16 07:05 Assessment/Plan Assessment/Plan -Acute PE secondary to control - Continue Xarelto for 6 mo -D/C control f/u in my office 6-8wks Clinical Quality Measures DVT/VTE Risk/Contraindication: Risk Factor Score Per Nursin RFS Level Per Nursing on Admit: 4+=Very High BA WEISS DO Feb 23, 2016 09:25
[2016-02-23] MEDS ORDERED: RIVA20TA PO (10:38)
[2016-02-23] MEDS ORDERED: RIVA15TA PO (10:38)
--- NOTE | 2016-02-23 10:41 | Discharge Instructions ---
Discharge Instructions Discharge Medications New, Converted or Re-Newed RX: RX on Chart New Medications: Rivaroxaban (Xarelto) 20 Mg Tablet 20 MG PO DAILY #30 Ref 5 TAB Rivaroxaban (Xarelto) 15 Mg Tablet 15 MG PO BID@07,17 Days 21 TAB Discontinued Medications: ([Bcp]) Patient Instructions Goal/Follow Up Appt: Dr Sanchez at [facility] [place] next week when returns from vacation home Patient Instructions: Stop BCP's Take Xarelto samples 15mg twice a day for 21 days then change to Xarelto 20mg daily until further notice Activity & Diet Discharge Diet: No Restrictions Activity as Tolerated: Yes BERNADETTE PERDOMO DO Feb 23, 2016 10:41
--- NOTE | 2016-02-23 10:46 | Discharge Summary-Hospitalist ---
Diagnosis/Chief Complaint Date of Admission Feb 20, 2016 at 17:30 Date of Discharge Discharge Date: Feb 23, 2016 Admission Diagnosis Acute bilateral pulmonary emboli saddle-type with large clot burden with necessity of heparin infusion until transitioning to Xarelto tomorrow Pulmonary hypertension on echocardiogram of 45 with LV strain consulting cardiology History of control pill use started 4 months ago and never been on control pills before and had been taking them continuously without menstrual bleed to regulate her cycles Maternal aunt with blood clots due to ovarian cancer and undergoing chemotherapy at that time Syncopal episode prompting echocardiogram on 02/17/16 Discharge Diagnosis Assessment: Acute bilateral pulmonary emboli saddle-type with large clot burden with necessity of heparin infusion s/p transitioned to Xarelto 15mg BID Pulmonary hypertension on echocardiogram of 45 with LV strain consulting cardiology History of control pill use started 4 months ago and never been on control pills before and had been taking them continuously without menstrual bleed to regulate her cycles Maternal aunt with blood clots due to ovarian cancer and undergoing chemotherapy at that time Syncopal episode prompting echocardiogram on 02/17/16 Constipation Patient doing very well still on heparin drip was started on Xarelto and transitioned successfully Walking around doing well no hypoxia noted on ambulation Family the bedside and denies any other issues or complaints Xarelto will be medication prescribed at discharge Vital stable, pleasant, oriented 3 Regular rate and rhythm, clear to auscultation bilaterally much improved from rales subtle finding yesterday in the bases No edema Assessment: Acute bilateral pulmonary emboli saddle-type with large clot burden with necessity of heparin infusion s/p transitioning to Xarelto today Pulmonary hypertension on echocardiogram of 45 with LV strain consulting cardiology History of control pill use started 4 months ago and never been on control pills before and had been taking them continuously without menstrual bleed to regulate her cycles Maternal aunt with blood clots due to ovarian cancer and undergoing chemotherapy at that time Syncopal episode prompting echocardiogram on 02/17/16 Plan: I appreciate Dr. Grier and Dr. 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 She was found to have elevated d-dimer of [address] angiogram that was obtained showing large clot burden of saddle pulmonary emboli. She was placed on heparin per protocol and Dr. Grier and Dr. Layne have been consulted due to abnormal echocardiogram showing left ventricular strain and pulmonary hypertension respectively. She reports that she was just started on control pills 4 months ago to regulate her periods of which she has been taking continuously without one week for menstrual bleed since that time. She also returned back from [place] airplane ride over break when she was participating in a basketball game. She reports that she experienced an episode of fainting on 02/17/16 at basketball practice and presented to the emergency room was found to have echocardiogram completed and had become more short of breath as time went on. Currently her family is at the bedside and she is very withdrawn due to the fact that she was unable to dissipate in the basketball game today and with the most important games of the season but she will watch the game by television. I did order a factor V Leiden clotting disorder lab test in case the acute clot would not skew the results but I updated the family on that fact that could be a possibility but factor V Leiden being the most common cause of hyper correctable state of addition to the hormone that she was on they agreed that was an opportunity while she was hospitalized to obtain. Note from 02/23/16: Patient had an uneventful night ambulating well with no hypoxia and no bleeding problems No BM yet been taking prune juice and I instructed her mother to purchase over- the-counter bowel meds in addition to suppository to resolve that issue at home No fever vital signs stable, pleasant, oriented 3 Regular rate and rhythm, clear to auscultation bilaterally No edema Hospital course: Patient had an uneventful hospital course she was found to have extensive clot burden pulmonary embolism bilaterally likely due to hypercoagulable state that was unknown and past history of control pill use for the past 4 months continuously to limit menstrual periods and a recent [place] plane ride long trip on a basketball game at the [employer] that predispose the patient to the events. She was placed on heparin infusion for 48 hours because of the extensive clot burden and transition to Xarelto 15 MG twice daily with good results and no bleeding complications. Cardiology did evaluate the patient considering left ventricular strain and pulmonary hypertension of 45 due to the clot burden and she will be monitor closely. She will follow-up with Dr. Sanchez at the [facility] next week and Xarelto samples will be given by Dr. Lanye of 15 twice a day starter pack and I wrote this prescription for Xarelto 20 mg daily until further notice. She will not be released for [facility] athletic events until further notice. Discharge Summary Discharge Physical Examination Allergies: Coded Allergies: No Known Drug Allergies (Unverified , 02/17/16) Vitals & I&Os Vital Signs Date Time Temp Pulse Resp B/P Pulse Ox O2 Delivery O2 Flow Rate FiO2 02/23/16 08:00 97.5 88 20 112/59 96 Room Air 02/21/16 06:30 2.00 Hospital Course Labs (last 24 hrs) Laboratory Tests 02/23/16 07:05: Alanine Aminotransferase (ALT/SGPT) 37, Albumin 4.1, Alkaline Phosphatase 70, Anion Gap 11, Aspartate Amino Transf (AST/SGOT) 30, BUN/Creatinine Ratio 15, Basophils # (Auto) 0.0, Basophils (%) (Auto) 0, Blood Urea Nitrogen 14, Calcium Level 9.9, Carbon Dioxide Level 23, Chloride Level 103, Creatinine 0.91, Eosinophils # (Auto) 0.3, Eosinophils (%) (Auto) 6, Estimat Glomerular Filtration Rate > 60, Glucose Level 92, Hematocrit 39, Hemoglobin 13.5, Lymphocytes # (Auto) 1.5, Lymphocytes (%) (Auto) 26, Mean Corpuscular Hemoglobin 31, Mean Corpuscular Hemoglobin Concent 35, Mean Corpuscular Volume 89, Mean Platelet Volume 10.0, Monocytes # (Auto) 0.4, Monocytes (%) (Auto) 6, Neutrophils # (Auto) 3.5, Neutrophils (%) (Auto) 61, Platelet Count 169, Potassium Level 4.3, Red Blood Count 4.37, Red Cell Distribution Width 12.8, Sodium Level 137, Total Bilirubin 0.4, Total Protein 7.3, White Blood Count 5.8 Microbiology 02/20/16 MRSA Screen - Final, Complete MRSA not isolated Pending Labs Laboratory Tests 02/23/16 07:05: Alanine Aminotransferase (ALT/SGPT) 37, Albumin 4.1, Alkaline Phosphatase 70, Anion Gap 11, Aspartate Amino Transf (AST/SGOT) 30, BUN/Creatinine Ratio 15, Basophils # (Auto) 0.0, Basophils (%) (Auto) 0, Blood Urea Nitrogen 14, Calcium Level 9.9, Carbon Dioxide Level 23, Chloride Level 103, Creatinine 0.91, Eosinophils # (Auto) 0.3, Eosinophils (%) (Auto) 6, Estimat Glomerular Filtration Rate > 60, Glucose Level 92, Hematocrit 39, Hemoglobin 13.5, Lymphocytes # (Auto) 1.5, Lymphocytes (%) (Auto) 26, Mean Corpuscular Hemoglobin 31, Mean Corpuscular Hemoglobin Concent 35, Mean Corpuscular Volume 89, Mean Platelet Volume 10.0, Monocytes # (Auto) 0.4, Monocytes (%) (Auto) 6, Neutrophils # (Auto) 3.5, Neutrophils (%) (Auto) 61, Platelet Count 169, Potassium Level 4.3, Red Blood Count 4.37, Red Cell Distribution Width 12.8, Sodium Level 137, Total Bilirubin 0.4, Total Protein 7.3, White Blood Count 5.8 Discharge Home Medications: Active Scripts Active Xarelto (Rivaroxaban) 20 Mg Tablet 20 Mg PO DAILY Xarelto (Rivaroxaban) 15 Mg Tablet 15 Mg PO BID@07,17 21 Days Reported [Bcp] Instructions to patient/family Please see electonic discharge instructions given to patient. Clinical Quality Measures DVT/VTE Risk/Contraindication: Risk Factor Score Per Nursin RFS Level Per Nursing on Admit: 4+=Very High BERNADETTE PERDOMO DO Feb 23, 2016 10:46
[2016-02-23] MEDS: FLU TRIvalent (5 YOA+) 2016-17 (AFLURIA) 0.5 ML IM ONE (11:15)
[2016-02-23 12:00] VITALS: BP 110/60
[2016-02-27 14:58] LABS: FACTOR 5 (LEIDEN) MUTATION Negative (Negative)
[2016-02-29 13:31] LABS: FACTOR 5 LEIDEN INTERP See Footnote
== END 2016-02-23 12:00 | disposition home or self-care (01) | DRG 176 ==
LOC: EDUNIT# 16:14 → ER 16:15 → ICU 17:30 → CSD 02-21 00:22 → ICU 02-21 16:00 → 4TH 02-22 09:52
PROVIDERS: ADMIT Internal Medicine; ATTEND Internal Medicine
DX: I26.92 Saddle embolus of pulmonary artery without acute cor pulmonale (principal); I27.2 Other secondary pulmonary hypertension; Z80.41 Family history of malignant neoplasm of ovary; R55 Syncope and collapse; I51.9 Heart disease, unspecified; T38.5X5A Adverse effect of other estrogens and progestogens, initial encounter
CPT/HCPCS: 36415; 71275; 80053; 81241; 84703; 85025; 85610; 85730; 87081; 93005; 93970; 94760; 96365

== ENCOUNTER → 2016-03-08 | Outpatient (CLI) | payer BC ==
[~2016-03-08] MED LIST: BCP; RIVA15TA PO; RIVA20TA PO
--- OUTSIDE RECORDS SUMMARY | 2016-03-08 11:52 | XMS REPORT | Continuity of Care Document ---
Author Author [facility] Organization [facility] Address Unknown Phone Unavailable Care Team Providers Care Machine Taper Name Role Phone PCP Unavailable Source Comments Some departments are not documenting in the electronic medical record. 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
== END ==
LOC: CARD 11:49
PROVIDERS: ATTEND Internal Medicine Interventional Cardiology
DX: R55 Syncope and collapse (principal); I26.99 Other pulmonary embolism without acute cor pulmonale; I27.2 Other secondary pulmonary hypertension; I51.89 Other ill-defined heart diseases

== ENCOUNTER → 2016-04-07 | Outpatient (CLI) | payer BC, OTHER ==
--- OUTSIDE RECORDS SUMMARY | 2016-04-07 11:32 | XMS REPORT | Continuity of Care Document ---
Author Author [facility] Organization [facility] Address Unknown Phone Unavailable Care Team Providers Care Dental Technician Apprentice Name Role Phone PCP Unavailable Source Comments Some departments are not documenting in the electronic medical record. If you do not see the information that you expected, contact Release of Information in the Health Information Management department at [phone] for further assistance in locating additional records.[facility] Active Allergies and Adverse Reactions Not on [...]
--- NOTE | 2016-04-16 08:13 | ECHOCARDIOGRAPHY REPORT ---
PROCEDURE PHYSICIAN: LINDA DELGADO DATE OF PROCEDURE: 04/07/2016 TWO DIMENSIONAL ECHOCARDIOGRAM REPORT PRIMARY PHYSICIAN: OTHER PHYSICIAN: REFERRING PHYSICIAN: Dr. Nati Sanchez ORDERING PHYSICIAN: ATTENDING PHYSICIAN: FAMILY PHYSICIAN: READING PHYSICIAN: INDICATION FOR THE PROCEDURE: Near syncope. MEASUREMENTS DERIVED VALUES LV DIAMETER (LAX) NORMALS NORMALS Diastolic (3.6-5.2) Eject. Fract. (60%+/-6%) Systolic (2.3-3.9) Diastolic Vol. % Shortening (0.22-0.42) Systolic Vol. Aortic Root IVS THICKNESS Diastolic (0.6-1.1) LVPW THICKNESS Diastolic (0.6-1.1) LA DIAMETER Systolic (2.1-3.7) FINDINGS: 1. Sinus rhythm. 2. Left atrial dimensions are normal. 3. Aortic root dimensions are normal. 4. Left ventricular systolic function is preserved. Left ventricular ejection fraction is 60 to 70%. No LVH is present. 5. Wall motion is normal. 6. Right heart dimensions are normal. Right ventricular systolic function is preserved. 7. There is no evidence of pericardial effusion. 8. Diastolic function is normal. 9. IVC is mildly enlarged with a diameter of 2.2 cm which suggests increased right atrial pressure. VALVULAR STRUCTURE OF THE HEART: There is trace tricuspid regurgitation with RVSP 34mmhg, trace mitral regurgitation and mild pulmonic regurgitation. Aortic valve is normal. CONCLUSIONS: 1. LV and RV size and function is normal. 2. LV EF is 60 to 70%. There is no significant valvular heart disease. 3. Mild pulmonary hypertension is noted with dilated IVC which may suggest increased right atrial pressure. Job ID: [id number] Dictated Date: 04/15/2016 09:59:50 Can Filling Machine Operator Date: 04/16/2016 08:01:24 / kalpana LEON
== END ==
LOC: CARD 11:28
PROVIDERS: ATTEND Internal Medicine Interventional Cardiology
DX: R55 Syncope and collapse (principal); I26.99 Other pulmonary embolism without acute cor pulmonale; I27.2 Other secondary pulmonary hypertension; I51.89 Other ill-defined heart diseases
CPT/HCPCS: 93306

== ENCOUNTER → 2016-05-25 | Outpatient (CLI) | payer BC, OTHER ==
--- NOTE | 2016-05-27 10:44 | ECHOCARDIOGRAPHY REPORT ---
PROCEDURE PHYSICIAN: LINDA GRIER DATE OF PROCEDURE: TWO DIMENSIONAL ECHOCARDIOGRAM REPORT PRIMARY PHYSICIAN: OTHER PHYSICIAN: Dr. Edmar Layne REFERRING PHYSICIAN: Dr. Nati Sanchez ORDERING PHYSICIAN: ATTENDING PHYSICIAN: FAMILY PHYSICIAN: PERFORMING PHYSICIAN: Dr. Luis Antonio Grier INDICATION FOR THE PROCEDURE: History of PE and pulmonary hypertension. MEASUREMENTS DERIVED VALUES LV DIAMETER (LAX) NORMALS NORMALS Diastolic (3.6-5.2) Eject. Fract. (60%+/-6%) Systolic (2.3-3.9) Diastolic Vol. % Shortening (0.22-0.42) Systolic Vol. Aortic Root IVS THICKNESS Diastolic (0.6-1.1) LVPW THICKNESS Diastolic (0.6-1.1) LA DIAMETER Systolic (2.1-3.7) FINDINGS: 1. Sinus rhythm. 2. Left atrial dimensions are normal. 3. Aortic root dimensions are normal. 4. Left ventricular systolic function is preserved. Left ventricular ejection fraction is 60 to 65%. No LVH is present. 5. There is no wall motion abnormalities. 6. There is mild RV enlargement with normal RV function. 7. There is no evidence of pericardial effusion. 8. Diastolic function is normal. 9. IVC diameter is 1.9 cm with less than 50% collapse with this patient. VALVULAR STRUCTURE OF THE HEART: Mild tricuspid regurgitation with RVSP of 17 mmHg. There is no other mitral, pulmonic or aortic valve pathology. CONCLUSION: 1. LV size and function is normal. 2. LV EF is 60 to 65%. 3. RVSP: 17 mmHg which is a normal. 4. There is mild RV enlargement with normal RV function. 5. IVC diameter is borderline enlarged with less than 50% collapsed with respiration which may suggest slightly increased right atrial pressure. 6. Compared to echocardiogram done on 04/07/2016, PA pressure has improved from 34 mmHg to 17 mmHg. IVC diameter is also reduced from 2.2 cm to 1.9 cm Job ID: [id number] Dictated Date: 05/27/2016 08:58:55 Pricing Analyst Date: 05/27/2016 10:38:40 / nathaniel
== END ==
LOC: CARD 13:27
PROVIDERS: ATTEND Internal Medicine Interventional Cardiology
DX: I27.2 Other secondary pulmonary hypertension (principal); I26.99 Other pulmonary embolism without acute cor pulmonale; I51.89 Other ill-defined heart diseases
CPT/HCPCS: 93306

== ENCOUNTER → 2016-11-09 | Outpatient (CLI) | payer BC ==
[~2016-11-09] MED LIST changes: +IOHEXOL 350 MG/ML 100 ML (OMNIPAQUE 350) VIAL IV ONE; +NS 100 ML (IVPB) BAG IV ONE
--- NOTE | 2016-11-09 14:56 | Diagnostic Imaging Report ---
PROCEDURE: CT angiography of the chest with contrast. TECHNIQUE: Multiple contiguous axial images were obtained through the chest after uneventful bolus administration of intravenous contrast. Reconstructed CTA MIP acquisitions were also performed. INDICATION: Chest pain. COMPARISON: 02/20/16. FINDINGS: The pulmonary arteries are well opacified with no filling defects seen to to suggest pulmonary embolism. The previously seen emboli on 02/20/2016 have completely resolved. The thoracic aorta is normal in caliber. The heart size is prominent. There is no pericardial or pleural effusion. No mediastinal mass. No significant lymphadenopathy in the mediastinum, zi or in the axilla. The lungs demonstrate subsegmental area of consolidation in the posterior-inferior aspect of the right lower lobe also seen on 02/20/2016. This may represent scarring or chronic atelectasis. This could be sequel of pulmonary infarct from the previous PE. Previously seen nodular density along the left lung base is less prominent on the current exam and is probably related to a mild focal scar. No significant consolidation or mass is seen otherwise. Sections in the upper abdomen demonstrate no definite abnormality. The osseous structures appear grossly unremarkable. IMPRESSION: 1. No pulmonary embolism. 2. Subsegmental consolidation in the inferior posterior aspect of the right lower lobe is likely related to chronic atelectasis or scarring. This could be sequela of a pulmonary infarct from prior emboli. 3. Borderline cardiac size. Correlate clinically and with echocardiogram if needed. Dictated by: Dictated on workstation # [id number]
== END ==
LOC: RAD 13:48
PROVIDERS: ATTEND Internal Medicine
DX: R91.8 Other nonspecific abnormal finding of lung field (principal); R07.9 Chest pain, unspecified; Z86.711 Personal history of pulmonary embolism
CPT/HCPCS: 71275

== ENCOUNTER → 2016-12-09 | Outpatient (CLI) | payer BC, OTHER ==
[~2016-12-09] MED LIST changes: -IOHEXOL 350 MG/ML 100 ML (OMNIPAQUE 350) VIAL IV ONE; -NS 100 ML (IVPB) BAG IV ONE
== END ==
LOC: CARD 09:11
PROVIDERS: ATTEND Internal Medicine Interventional Cardiology
DX: I26.99 Other pulmonary embolism without acute cor pulmonale (principal); I27.20 Pulmonary hypertension, unspecified; I51.89 Other ill-defined heart diseases
CPT/HCPCS: 93306